=== PATIENT | female | born 1970 | race Two or more races ===

== ENCOUNTER → 2020-05-28 07:25 | Outpatient (CLI) | payer OTHER | END | disposition home or self-care (01) | LOC: LAB 07:25 | DX: E55.9 Vitamin D deficiency, unspecified (principal); E03.8 Other specified hypothyroidism; E66.3 Overweight; E20.8 Other hypoparathyroidism ==

== ENCOUNTER → 2020-06-03 07:02 | Outpatient (CLI) | payer OTHER | END | disposition home or self-care (01) | LOC: LAB 07:02 | PROVIDERS: ATTEND Obstetrics & Gynecology | DX: D64.89 Other specified anemias (principal); N39.0 Urinary tract infection, site not specified; E11.9 Type 2 diabetes mellitus without complications; E78.00 Pure hypercholesterolemia, unspecified; E03.8 Other specified hypothyroidism; E55.9 Vitamin D deficiency, unspecified; Z12.11 Encounter for screening for malignant neoplasm of colon; N91.1 Secondary amenorrhea ==

== ENCOUNTER 2020-09-19 07:02 | Outpatient (CLI) | payer OTHER | END 2020-09-19 07:06 | disposition home or self-care (01) | LOC: LAB 07:02 | PROVIDERS: ATTEND Urology | DX: N20.0 Calculus of kidney (principal) ==

== ENCOUNTER 2020-09-26 08:53 | Outpatient (CLI) | payer OTHER | END 2020-09-26 09:08 | disposition home or self-care (01) | LOC: SONOGRAMA 08:53 | PROVIDERS: ATTEND Urology | DX: N20.0 Calculus of kidney (principal) ==

== ENCOUNTER → 2020-10-03 07:12 | Outpatient (CLI) | payer OTHER | END | disposition home or self-care (01) | LOC: LAB 07:12 | DX: E03.8 Other specified hypothyroidism (principal) ==

== ENCOUNTER 2021-03-21 10:25 | Outpatient (CLI) | payer OTHER | END 2021-03-21 10:31 | disposition home or self-care (01) | LOC: LAB 10:25 | DX: E03.8 Other specified hypothyroidism (principal); E55.9 Vitamin D deficiency, unspecified ==

== ENCOUNTER 2021-03-31 07:37 | Outpatient (CLI) | payer OTHER | END 2021-03-31 07:51 | disposition home or self-care (01) | LOC: RAD 07:37 | PROVIDERS: ATTEND Urology | DX: N20.0 Calculus of kidney (principal) ==

== ENCOUNTER → 2021-06-27 07:46 | Outpatient (CLI) | payer OTHER | END | disposition home or self-care (01) | LOC: LAB 07:46 | PROVIDERS: ATTEND Obstetrics & Gynecology | DX: D64.89 Other specified anemias (principal); E11.9 Type 2 diabetes mellitus without complications; N39.0 Urinary tract infection, site not specified; E78.00 Pure hypercholesterolemia, unspecified; E03.8 Other specified hypothyroidism; K76.89 Other specified diseases of liver; N91.1 Secondary amenorrhea; Z12.11 Encounter for screening for malignant neoplasm of colon ==

== ENCOUNTER 2021-07-08 16:19 | Outpatient (CLI) | payer OTHER | END 2021-07-08 16:25 | disposition home or self-care (01) | LOC: LAB 16:19 | PROVIDERS: ATTEND Obstetrics & Gynecology | DX: D64.89 Other specified anemias (principal); E11.9 Type 2 diabetes mellitus without complications; N39.0 Urinary tract infection, site not specified; E78.00 Pure hypercholesterolemia, unspecified; E03.8 Other specified hypothyroidism; K76.89 Other specified diseases of liver; N91.1 Secondary amenorrhea; Z12.11 Encounter for screening for malignant neoplasm of colon ==

== ENCOUNTER 2021-08-15 07:23 | Outpatient (CLI) | payer OTHER | END 2021-08-15 07:27 | disposition home or self-care (01) | LOC: LAB 07:23 | PROVIDERS: ATTEND Internal Medicine | DX: E03.8 Other specified hypothyroidism (principal); E55.9 Vitamin D deficiency, unspecified; E66.3 Overweight ==

== ENCOUNTER 2021-10-26 08:50 | Outpatient (CLI) | payer OTHER | END 2021-10-26 08:51 | disposition home or self-care (01) | LOC: LAB 08:50 | PROVIDERS: ATTEND Urology | DX: N20.0 Calculus of kidney (principal) ==

== ENCOUNTER 2021-10-26 09:36 | Outpatient (CLI) | payer OTHER | END 2021-10-26 09:42 | disposition home or self-care (01) | LOC: SONOGRAMA 09:36 | PROVIDERS: ATTEND Urology | DX: N20.0 Calculus of kidney (principal) ==

== ENCOUNTER 2021-12-30 09:17 | Outpatient (CLI) | payer OTHER | END 2021-12-30 09:22 | disposition home or self-care (01) | LOC: SONOGRAMA 09:17 | DX: R10.13 Epigastric pain (principal); K30 Functional dyspepsia; R13.10 Dysphagia, unspecified; Z12.11 Encounter for screening for malignant neoplasm of colon; B96.81 Helicobacter pylori [H. pylori] as the cause of diseases classified elsewhere; R07.9 Chest pain, unspecified ==

== ENCOUNTER 2022-01-11 06:55 | Outpatient (CLI) | payer OTHER | END 2022-01-11 07:27 | disposition home or self-care (01) | LOC: LAB 06:55 | PROVIDERS: ATTEND Internal Medicine Gastroenterology | DX: D50.9 Iron deficiency anemia, unspecified (principal); Z20.822 Contact with and (suspected) exposure to COVID-19; N39.0 Urinary tract infection, site not specified; E78.5 Hyperlipidemia, unspecified; R11.2 Nausea with vomiting, unspecified; R74.8 Abnormal levels of other serum enzymes; R76.9 Abnormal immunological finding in serum, unspecified ==

== ENCOUNTER 2022-02-13 07:09 | Outpatient (CLI) | payer OTHER | END 2022-02-13 07:14 | disposition home or self-care (01) | LOC: LAB 07:09 | PROVIDERS: ATTEND Internal Medicine | DX: E03.8 Other specified hypothyroidism (principal); E55.9 Vitamin D deficiency, unspecified; D51.9 Vitamin B12 deficiency anemia, unspecified; E66.3 Overweight ==

== ENCOUNTER 2022-06-24 11:44 | Outpatient (CLI) | payer OTHER | END 2022-06-24 11:49 | disposition home or self-care (01) | LOC: RAD 11:44 | PROVIDERS: ATTEND Urology | DX: N20.0 Calculus of kidney (principal) ==

== ENCOUNTER → 2022-08-05 07:01 | Outpatient (CLI) | payer OTHER | END | disposition home or self-care (01) | LOC: LAB 07:01 | PROVIDERS: ATTEND Internal Medicine | DX: E78.00 Pure hypercholesterolemia, unspecified (principal); D51.9 Vitamin B12 deficiency anemia, unspecified; E78.1 Pure hyperglyceridemia; E03.8 Other specified hypothyroidism; E78.5 Hyperlipidemia, unspecified ==

== ENCOUNTER 2022-08-05 07:30 | Outpatient (CLI) | payer OTHER | END 2022-08-05 07:35 | disposition home or self-care (01) | LOC: SONOGRAMA 07:30 | PROVIDERS: ATTEND Internal Medicine | DX: E04.1 Nontoxic single thyroid nodule (principal) ==

== ENCOUNTER 2022-10-20 07:17 | Outpatient (CLI) | payer OTHER | END 2022-10-20 07:18 | disposition home or self-care (01) | LOC: LAB 07:17 → NUCLEAR 13:00 | PROVIDERS: ATTEND Obstetrics & Gynecology | DX: N95.1 Menopausal and female climacteric states (principal); C56.9 Malignant neoplasm of unspecified ovary; D64.9 Anemia, unspecified; E11.9 Type 2 diabetes mellitus without complications; N39.0 Urinary tract infection, site not specified; E78.00 Pure hypercholesterolemia, unspecified; E03.9 Hypothyroidism, unspecified; E55.9 Vitamin D deficiency, unspecified; R80.9 Proteinuria, unspecified ==

== ENCOUNTER 2022-10-20 13:21 | Outpatient (CLI) | payer OTHER | END 2022-10-20 13:22 | disposition home or self-care (01) | LOC: NUCLEAR 13:21 | PROVIDERS: ATTEND Obstetrics & Gynecology | DX: M81.0 Age-related osteoporosis without current pathological fracture (principal) ==

== ENCOUNTER 2023-01-13 07:16 | Outpatient (CLI) | payer OTHER | END 2023-01-13 07:17 | disposition home or self-care (01) | LOC: LAB 07:16 | PROVIDERS: ATTEND Urology | DX: N20.0 Calculus of kidney (principal) ==

== ENCOUNTER 2023-01-13 07:39 | Outpatient (CLI) | payer OTHER | END 2023-01-13 07:41 | disposition home or self-care (01) | LOC: RAD 07:39 | PROVIDERS: ATTEND Urology | DX: N20.0 Calculus of kidney (principal) ==

== ENCOUNTER 2023-05-29 09:02 | Emergency (ER) | payer OTHER ==
[~2023-05-29] VITALS: Ht 167.6 cm; Wt 65.8 kg
== END 2023-05-29 12:37 | disposition home or self-care (01) ==
LOC: ER 09:02
DX: M77.8 Other enthesopathies, not elsewhere classified (principal); Z88.8 Allergy status to other drugs, medicaments and biological substances

== ENCOUNTER 2023-06-10 10:25 | Outpatient (CLI) | payer OTHER | END 2023-06-10 10:39 | disposition home or self-care (01) | LOC: SONOGRAMA 10:25 | PROVIDERS: ATTEND Internal Medicine | DX: N39.0 Urinary tract infection, site not specified (principal); R10.2 Pelvic and perineal pain ==

== ENCOUNTER 2023-06-15 08:21 | Outpatient (CLI) | payer OTHER | END 2023-06-15 08:23 | disposition home or self-care (01) | LOC: LAB 08:21 | PROVIDERS: ATTEND Internal Medicine | DX: E03.8 Other specified hypothyroidism (principal); E55.9 Vitamin D deficiency, unspecified; E66.3 Overweight; E78.5 Hyperlipidemia, unspecified; E11.9 Type 2 diabetes mellitus without complications; N93.0 Postcoital and contact bleeding ==

== ENCOUNTER 2023-08-08 08:10 | Outpatient (CLI) | payer OTHER | END 2023-08-08 08:13 | disposition home or self-care (01) | LOC: SONOGRAMA 08:10 | PROVIDERS: ATTEND Pathology Anatomic Pathology & Clinical Pathology | DX: D34 Benign neoplasm of thyroid gland (principal); E04.9 Nontoxic goiter, unspecified; E06.5 Other chronic thyroiditis ==

== ENCOUNTER → 2023-10-14 06:50 | Outpatient (CLI) | payer OTHER ==
[2023-10-14 07:59] LABS: PH,URINE 5.5 (5.0-8.0); URINE APPEARANCE Clear; URINE BILIRRUBIN Negative (NEGATIVE); URINE BLOOD Small; URINE COLOR Yellow; URINE GLUCOSE Negative (NEGATIVE); URINE LEUKOCYTE Negative; URINE NITRATE Negative; URINE PROTEIN Negative (NEGATIVE); URINE UROBILINOGEN 0.2 E.U./dl
[2023-10-14 08:03] LABS: URINE EPITHELIAL CELLS 13.9 uL (0.0-38.8); URINE RBC 38.6 uL (0.0-20.8); URINE WBC 7.4 uL (0.0-23.2)
== END | disposition home or self-care (01) ==
LOC: LAB 06:50
PROVIDERS: ATTEND Urology
DX: N20.0 Calculus of kidney (principal)

== ENCOUNTER 2023-10-14 07:40 | Outpatient (CLI) | payer OTHER | END 2023-10-14 07:41 | disposition home or self-care (01) | LOC: TOM 07:40 | PROVIDERS: ATTEND Urology | DX: N20.0 Calculus of kidney (principal) ==

== ENCOUNTER 2023-11-30 12:31 | Emergency (ER) | payer OTHER ==
[~2023-11-30] VITALS: Ht 167.6 cm; Wt 65.8 kg
[2023-11-30 15:42] LABS: HEMATOCRIT 36.3 % (36.0-45.00); HEMOGLOBIN 12.3 g/dL (12.0-15.00); MEAN CELL VOLUME 84.5 fL (80.00-100.00); MEAN CORPUSCULAR HEMOGLOBIN 28.5 pg (27.00-32.0); MEAN CORPUSCULAR HGB CONC 33.8 g/dl (32.0-36.0); RED CELL DISTRIBUTION WIDTH 13.1 % (11.5-14.5)
[2023-11-30 16:06] LABS: PLATELET COUNT 109 K/uL (150-450)
== END 2023-11-30 16:52 | disposition home or self-care (01) ==
LOC: ER 12:32
PROVIDERS: General Practice
DX: R50.9 Fever, unspecified (principal); Z20.822 Contact with and (suspected) exposure to COVID-19

== ENCOUNTER 2024-01-16 07:11 | Outpatient (CLI) | payer OTHER ==
[2024-01-16 08:06] LABS: HEMATOCRIT 37.6 % (36.0-45.00); HEMOGLOBIN 12.7 g/dL (12.0-15.00); MEAN CORPUSCULAR HEMOGLOBIN 29.3 pg (27.00-32.0); MEAN CORPUSCULAR HGB CONC 33.7 g/dl (32.0-36.0); PLATELET COUNT 187 K/uL (150-450); RED BLOOD COUNT 4.32 M/uL (4.00-6.00)
[2024-01-16 08:09] LABS: PH,URINE 6.5 (5.0-8.0); URINE APPEARANCE Clear; URINE BILIRRUBIN Negative (NEGATIVE); URINE BLOOD Negative; URINE COLOR Yellow; URINE GLUCOSE Negative (NEGATIVE); URINE LEUKOCYTE Negative; URINE NITRATE Negative; URINE PROTEIN Negative (NEGATIVE); URINE UROBILINOGEN 0.2 E.U./dl
[2024-01-16 08:13] LABS: URINE BACTERIA 51.6 uL (0.0-1933); URINE EPITHELIAL CELLS 5.5 uL (0.0-38.8); URINE RBC 6.4 uL (0.0-20.8); URINE WBC 5.2 uL (0.0-23.2)
[2024-01-16 09:12] LABS: ALBUMIN 3.8 gm/dL (3.4-5.0); BILIRUBIN TOTAL 0.38 mg/dL (0.3-1.2); CREATININE SERUM 0.62 mg/dL (0.55-1.02); GFR 100.69; GLOBULINA 3.3 G/DL (2.4-3.5); POTASSIUM 4.15 mEq/L (3.5-5.1); T4 TOTAL 6.8 UG/DL (4.8-13.9); TOTAL PROTEIN 7.1 gm/dL (6.4-8.2); TSH 1.73 uIU/mL (0.358-3.74)
[2024-01-17 10:08] LABS: FOLLICLE STIMULATING HORMONE 4.4 mIU/mL (.)
[2024-01-17 12:12] LABS: hav igm Negative (Negative); hcv Non Reactive (Non Reactive); hep b c Negative (Negative)
== END 2024-01-16 18:19 | disposition home or self-care (01) ==
LOC: LAB 07:11
PROVIDERS: ATTEND Obstetrics & Gynecology
DX: D64.9 Anemia, unspecified (principal); E11.9 Type 2 diabetes mellitus without complications; N39.0 Urinary tract infection, site not specified; E78.00 Pure hypercholesterolemia, unspecified; E03.9 Hypothyroidism, unspecified; E55.9 Vitamin D deficiency, unspecified; Z12.11 Encounter for screening for malignant neoplasm of colon; K76.9 Liver disease, unspecified; R80.9 Proteinuria, unspecified

== ENCOUNTER → 2024-01-21 13:44 | Outpatient (CLI) | payer OTHER ==
[2024-01-21 14:40] LABS: ob NEGATIVE (NEGATIVE)
== END | disposition home or self-care (01) ==
LOC: LAB 13:44
PROVIDERS: ATTEND Obstetrics & Gynecology
DX: D64.9 Anemia, unspecified (principal); E11.9 Type 2 diabetes mellitus without complications; N39.0 Urinary tract infection, site not specified; E78.00 Pure hypercholesterolemia, unspecified; E03.9 Hypothyroidism, unspecified; E55.9 Vitamin D deficiency, unspecified; Z12.11 Encounter for screening for malignant neoplasm of colon; K26.9 Duodenal ulcer, unspecified as acute or chronic, without hemorrhage or perforation; R80.9 Proteinuria, unspecified

== ENCOUNTER 2024-06-08 09:00 | Outpatient (CLI) | payer OTHER ==
[2024-06-08 10:12] LABS: HEMATOCRIT 35.9 % (36.0-45.00); HEMOGLOBIN 12.3 g/dL (12.0-15.00); MEAN CELL VOLUME 86.8 fL (80.00-100.00); MEAN CORPUSCULAR HEMOGLOBIN 29.7 pg (27.00-32.0); MEAN CORPUSCULAR HGB CONC 34.2 g/dl (32.0-36.0); PLATELET COUNT 180 K/uL (150-450); RED BLOOD COUNT 4.14 M/uL (4.00-6.00); RED CELL DISTRIBUTION WIDTH 13.4 % (11.5-14.5)
[2024-06-08 10:50] LABS: ALBUMIN 3.9 gm/dL (3.4-5.0); BILIRUBIN TOTAL 0.57 mg/dL (0.3-1.2); CALCIUM 8.9 mg/dL (8.5-10.1); CHOL HDL RATIO 2.6 (0-5.0); CREATININE SERUM 0.59 mg/dL (0.55-1.02); GFR 106.62; GLOBULINA 3.3 G/DL (2.4-3.5); POTASSIUM 4.35 mEq/L (3.5-5.1); T4 FREE 0.9 NG/ML (0.76-1.46); TOTAL PROTEIN 7.2 gm/dL (6.4-8.2); TSH 1.42 uIU/mL (0.358-3.74)
== END 2024-06-08 09:03 | disposition home or self-care (01) ==
LOC: LAB 09:00
PROVIDERS: ATTEND Internal Medicine
DX: E03.9 Hypothyroidism, unspecified (principal); E55.9 Vitamin D deficiency, unspecified; E11.65 Type 2 diabetes mellitus with hyperglycemia; E78.5 Hyperlipidemia, unspecified; Z13.1 Encounter for screening for diabetes mellitus

== ENCOUNTER 2024-06-08 09:13 | Outpatient (CLI) | payer OTHER | END 2024-06-08 09:19 | disposition home or self-care (01) | LOC: SONOGRAMA 09:13 | PROVIDERS: ATTEND Internal Medicine | DX: E04.2 Nontoxic multinodular goiter (principal); N20.0 Calculus of kidney ==

== ENCOUNTER 2024-06-15 07:42 | Outpatient (CLI) | payer OTHER ==
[2024-06-15 08:37] LABS: PH,URINE 5.5 (5.0-8.0); URINE APPEARANCE Clear; URINE BILIRRUBIN Negative (NEGATIVE); URINE BLOOD Trace; URINE COLOR Yellow; URINE GLUCOSE Negative (NEGATIVE); URINE KETONE Negative (NEGATIVE); URINE LEUKOCYTE Negative; URINE NITRATE Negative; URINE PROTEIN Negative (NEGATIVE); URINE UROBILINOGEN 0.2 E.U./dl
[2024-06-15 08:42] LABS: URINE BACTERIA 159.9 uL (0.0-1933); URINE RBC 6.8 uL (0.0-20.8); URINE WBC 5.6 uL (0.0-23.2)
[2024-06-15 08:58] LABS: URINE CAST 0.15 uL (0.0-1.40)
== END 2024-06-15 07:43 | disposition home or self-care (01) ==
LOC: LAB 07:42
PROVIDERS: ATTEND Urology
DX: N20.0 Calculus of kidney (principal)

== ENCOUNTER → 2025-04-10 08:05 | Outpatient (CLI) | payer OTHER ==
[2025-04-10 09:52] LABS: CALCIUM 8.7 mg/dL (8.5-10.1); CREATININE SERUM 0.64 mg/dL (0.55-1.02); GFR 96.7; POTASSIUM 4.04 mEq/L (3.5-5.1); T4 FREE 0.88 NG/ML (0.76-1.46); TSH 1.88 uIU/mL (0.358-3.74)
== END | disposition home or self-care (01) ==
LOC: LAB 08:05
PROVIDERS: ATTEND Internal Medicine
DX: E03.8 Other specified hypothyroidism (principal); E11.9 Type 2 diabetes mellitus without complications

== ENCOUNTER 2025-04-10 08:24 | Outpatient (CLI) | payer OTHER | END 2025-04-10 08:32 | disposition home or self-care (01) | LOC: SONOGRAMA 08:24 | PROVIDERS: ATTEND Internal Medicine | DX: E04.2 Nontoxic multinodular goiter (principal) ==

== ENCOUNTER 2025-05-07 06:44 | Outpatient (CLI) | payer OTHER ==
[2025-05-07 07:40] LABS: EOS # 0.19 (0.04-0.54); EOS % 4.5 % (0.7-7.0); HEMATOCRIT 38.8 % (34.1-44.9); HEMOGLOBIN 12.6 g/dL (11.2-15.7); LYMPH # 1.16 (1.18-3.74); LYMPH % 27.8 % (19.3-53.1); MEAN CORPUSCULAR HEMOGLOBIN 28.7 pg (25.6-32.2); MONO % 9.6 % (4.7-12.5); NEUT # 2.38 (1.56-6.13); NEUT % 56.9 % (34.0-71.1); PLATELET COUNT 196 K/uL (163-369); RED BLOOD COUNT 4.39 M/uL (3.93-5.22); RED CELL DISTRIBUTION WIDTH 12.1 % (11.6-14.4)
[2025-05-07 07:59] LABS: PARTIAL THROMBOPLASTIN TIME 26.5 SECONDS (22.0-34.0); PROTHROMBIN TIME 10.9 SECONDS (9.0-11.5)
== END 2025-05-07 06:48 | disposition home or self-care (01) ==
LOC: LAB 06:44
DX: D68.8 Other specified coagulation defects (principal)

== ENCOUNTER 2025-06-14 06:51 | Outpatient (CLI) | payer OTHER ==
[2025-06-14 08:22] LABS: BASO % 0.8 % (0.1-1.2); EOS # 0.24 (0.04-0.54); EOS % 5.0 % (0.7-7.0); LYMPH # 0.96 (1.18-3.74); LYMPH % 19.9 % (19.3-53.1); MEAN PLATELET VOLUME 11.00 fl (9.4-12.4); MONO # 0.41 (0.24-0.82); MONO % 8.5 % (4.7-12.5); NEUT # 3.14 (1.56-6.13); NEUT % 65.2 % (34.0-71.1); RED CELL DISTRIBUTION WIDTH 13.0 % (11.6-14.4)
[2025-06-14 08:30] LABS: URINE APPEARANCE Clear; URINE BILIRRUBIN Negative (NEGATIVE); URINE BLOOD Small; URINE COLOR Yellow; URINE GLUCOSE Negative (NEGATIVE); URINE KETONE Trace (NEGATIVE); URINE LEUKOCYTE Negative; URINE NITRATE Negative; URINE PROTEIN Negative (NEGATIVE); URINE UROBILINOGEN 0.2 E.U./dl
[2025-06-14 08:31] LABS: URINE BACTERIA 88.7 uL (0.0-1933); URINE EPITHELIAL CELLS 5.2 uL (0.0-38.8); URINE RBC 18.6 uL (0.0-20.8); URINE WBC 7.9 uL (0.0-23.2)
[2025-06-14 08:50] LABS: URINE CAST 0.29 uL (0.0-1.40)
[2025-06-14 09:05] LABS: ALT/SGPT 22.0 U/L (12-78); AST/SGOT 11.0 U/L (15-37); BILIRUBIN TOTAL 0.36 mg/dL (0.3-1.2); BILIRUBIN,CONJUGATED 0.11 mg/dL (0.0-0.2); BUN CREA RATIO 19.0 (7.0-25.0); CHOL HDL RATIO 2.8 (0-5.0); CREATININE SERUM 0.64 mg/dL (0.55-1.02); GFR 96.7; GLOBULINA 3.0 G/DL (2.4-3.5); GLUCOSE FASTING 98.0 mg/dL (65-100); HDL 72.0 mg/dl (40-60); LDL 111.0 mg/dl (0-130); OSMOLALITY SERUM 285.0 MOSM/KG (275-295); VLDL 15.0 (0-39)
[2025-06-14 09:19] LABS: FREE TRIODOTIRONINE 2.78 pg/ml (2.18-3.98); T4 TOTAL 7.22 UG/DL (4.8-13.9); TSH 2.69 uIU/mL (0.358-3.74)
[2025-06-15 09:08] LABS: ESTRADIOL SERUM 106.0 pg/mL (.)
== END 2025-06-14 06:55 | disposition home or self-care (01) ==
LOC: LAB 06:51
PROVIDERS: ATTEND Obstetrics & Gynecology
DX: D64.9 Anemia, unspecified (principal); E11.9 Type 2 diabetes mellitus without complications; N39.0 Urinary tract infection, site not specified; E78.00 Pure hypercholesterolemia, unspecified; E03.9 Hypothyroidism, unspecified; E55.9 Vitamin D deficiency, unspecified; Z12.11 Encounter for screening for malignant neoplasm of colon; R50.9 Fever, unspecified; B19.9 Unspecified viral hepatitis without hepatic coma; K76.9 Liver disease, unspecified; N95.1 Menopausal and female climacteric states; L68.0 Hirsutism

== ENCOUNTER 2025-06-20 08:08 | Outpatient (CLI) | payer OTHER ==
[2025-06-20 09:22] LABS: ob NEGATIVE (NEGATIVE)
== END 2025-06-20 08:12 | disposition home or self-care (01) ==
LOC: LAB 08:08
PROVIDERS: ATTEND Obstetrics & Gynecology
DX: D64.9 Anemia, unspecified (principal); E11.9 Type 2 diabetes mellitus without complications; N39.0 Urinary tract infection, site not specified; E78.00 Pure hypercholesterolemia, unspecified; E03.9 Hypothyroidism, unspecified; E55.9 Vitamin D deficiency, unspecified; Z12.11 Encounter for screening for malignant neoplasm of colon; R80.9 Proteinuria, unspecified; B19.9 Unspecified viral hepatitis without hepatic coma; K76.9 Liver disease, unspecified; N95.1 Menopausal and female climacteric states; L68.0 Hirsutism

== ENCOUNTER 2025-06-20 08:22 | Outpatient (CLI) | payer OTHER | END 2025-06-20 08:26 | disposition home or self-care (01) | LOC: SONOGRAMA 08:22 | PROVIDERS: ATTEND Internal Medicine Gastroenterology | DX: K29.70 Gastritis, unspecified, without bleeding (principal); Z86.0100 Personal history of colon polyps, unspecified; R10.13 Epigastric pain; K30 Functional dyspepsia ==

== ENCOUNTER 2025-07-02 08:14 | Outpatient (CLI) | payer OTHER | END 2025-07-02 08:17 | disposition home or self-care (01) | LOC: SONOGRAMA 08:14 | DX: M79.604 Pain in right leg (principal) ==

== ENCOUNTER 2025-10-01 09:37 | Outpatient (CLI) | payer OTHER | END 2025-10-01 09:39 | disposition home or self-care (01) | LOC: SONOGRAMA 09:37 | DX: N20.0 Calculus of kidney (principal) ==